=== PATIENT | female | born 1980 | race Caucasian/White ===

== ENCOUNTER 2023-02-17 17:13 | Emergency (ER) | payer OTHER ==
[2023-02-17 17:18] VITALS: BP 110/55; PULSE 95; RESP 18; TEMP 98.2; BMI 29.2
== END 2023-02-17 18:32 | disposition home or self-care (01) ==
LOC: JERFT 17:13
DX: R07.0 Pain in throat (principal); R51.9 Headache, unspecified; R53.83 Other fatigue
CPT/HCPCS: 99282-25

== ENCOUNTER 2023-10-11 16:25 | Emergency (ER) | payer OTHER ==
[2023-10-11 17:00] VITALS: BP 130/67; PULSE 87; RESP 17; TEMP 98; BMI 27.1
[2023-10-11] MEDS ORDERED: METHOCARBAMOL 500 MG TABLET ONE (17:28)
[2023-10-11] MEDS ORDERED: ACETAMINOPHEN 325 MG TABLET (FP) ONE (17:28)
[2023-10-11] MEDS: METHOCARBAMOL 500 MG TABLET PO ONE (17:34)
[2023-10-11] MEDS: ACETAMINOPHEN 325 MG TABLET (FP) PO ONE (17:34)
[2023-10-11 18:03] LABS: POTASSIUM 4.1 mmol/L (3.5-5.1)
[2023-10-11 18:05] LABS: CALCIUM 9.4 mg/dL (8.5-10.1)
[2023-10-11 18:06] LABS: BLOOD UREA NITROGEN 7.3 mg/dL (7-18)
[2023-10-11 18:09] LABS: CREATININE 0.7 mg/dL (0.55-1.3)
[2023-10-11 18:11] LABS: BILIRUBIN,TOTAL 0.4 mg/dL (0.2-1); TOT PROT 7.8 g/dl (6.4-8.2)
[2023-10-11 18:15] LABS: BASO % 0.7 % (0-2.0); EOS % 0.8 % (0-4.5); HEMATOCRIT 42.1 % (32.4-45.2); HEMOGLOBIN 13.9 GM/dL (10.7-15.3); LYMPH % 16.5 % (8-40); MCH 25.3 pg (25.7-33.7); MEAN CELL VOLUME 76.7 fl (80-96); MEAN PLT VOLUME 8.7 fl (7.5-11.1); MONO % 7.3 % (3.8-10.2); NEUT % 74.7 % (42.8-82.8); PLATELET COUNT 287 10^3/uL (134-434); RBC 5.49 M/mm3 (3.60-5.2); RDW 15.6 % (11.6-15.6)
[2023-10-11 18:18] LABS: INR 1.09 (0.83-1.09); PROTHROMBIN TIME (PATIENT) 12.6 SEC (9.7-13.0)
[2023-10-11 18:21] LABS: ACTIVATED PTT 30.4 SECONDS (25.2-36.5)
== END 2023-10-11 19:04 | disposition home or self-care (01) ==
LOC: JERFT 16:25
DX: M62.838 Other muscle spasm (principal); M25.512 Pain in left shoulder
CPT/HCPCS: 36415; 80053; 84484; 85025; 85610; 85730; 93005; 93010; 99284-25